=== PATIENT | female | born 1985 | race Caucasian/White ===

== ENCOUNTER → 2024-04-27 14:52 | Outpatient (REF) | payer BC, SELFPAY | LOC: HWRAD 14:52 | PROVIDERS: ATTENDING PHYSICIAN Obstetrics & Gynecology | DX: N92.1 Excessive and frequent menstruation with irregular cycle (principal); N85.2 Hypertrophy of uterus | CPT/HCPCS: 76830; 76856 ==

== ENCOUNTER 2024-07-09 06:30 | Inpatient (IN) | payer BC, SELFPAY ==
[2024-06-25 09:00] LABS: % Basophils 0.7 % (0-2); % Eosinophils 1.7 % (0-6); % Immature Granulocytes 0.3 % (0-0.5); % Lymphocytes 26.2 % (20.5-51.1); % Monocytes 5.9 % (1.7-9.3); % Neutrophils 65.2 % (42.2-75.2); Absolute Basophils 0.1 10^3/uL (0-0.2); Absolute Eosinophils 0.1 10^3/uL (0-0.7); Absolute Lymphocytes 1.8 10^3/uL (1.2-3.4); Absolute Monocytes 0.4 10^3/uL (0.1-0.6); Absolute Neutrophils 4.5 10^3/uL (1.4-6.5); Hematocrit 36.1 % (37.0-47.0); Hemoglobin 12.5 g/dL (12.0-16.0); Mean Corp Hgb Conc. 34.6 g/dL (33.0-37.0); Mean Corpuscular Hgb 28.2 pg (27.0-31.0); Mean Corpuscular Volume 81.3 fL (81.0-99.0); Mean Platelet Volume 10.1 fL (7.4-10.4); Nucleated Red Blood Cells % 0 %; Platelet Count 303 10^3/uL (130-400); Red Blood Cell Count 4.44 10^6/uL (4.20-5.40); Red Cell Dist. Width 12.9 % (11.5-14.5)
[2024-06-25 09:15] VITALS: BMI 36.5
[2024-06-25 09:28] LABS: Blood Urea Nitrogen 11 mg/dl (7-17); Calcium 9.5 mg/dl (8.4-10.2); Carbon Dioxide 23 mmol/L (22-30); Chloride 105 mmol/L (98-107); Estimated Creatinine Clearance 95 ml/min; Glucose 92 mg/dl (70-99); Potassium 4.1 mmol/L (3.5-5.1); Sodium 143 mmol/L (135-145); eGFR > 60.00
[2024-06-25 09:44] LABS: Beta HCG Quantitative < 2.39 mIU/ml
[2024-06-29 08:36] LABS: Sex Hormone Binding Globulin 350 nmol/L (25-122); Total Testosterone,Female/Chil 37 ng/dL (9-55)
[2024-07-09] VITALS (18 sets, daily range): BP systolic 133–159; BP diastolic 81–111; BMI 36.5
[2024-07-09] MEDS: TYLENOL 1000 MG PO (06:32)
[2024-07-09] MEDS: NEURONTIN 600 MG PO (06:32)
[2024-07-09] MEDS: ENTEREG 12 MG PO (06:32)
--- NOTE | 2024-07-09 07:21 | W.SUR.PREOP ---
Pre-Operative Surgical Note
-
I have examined this patient prior to the performance of the scheduled procedure.
The patient's condition is unchanged from the time of the current History and
Physical and the patient is able to undergo the scheduled procedure.
I met with pt this am and had another lengthy discussion with her and regarding her understanding of the procedure and expectations. She is very concerned about needing a colostomy. I again reviewed the options of diagnostic laparoscopy
with excision of endometriosis cysts and/or drainage of cysts and trying to clean up much as possible. I did discuss with her that with this approach there was a high risk for recurrence of endometriosis and potential for developing more scar
tissue and also needing surgery in the future. I wanted to make sure we both understand the goals of surgery. I reviewed that the alternative is to proceed with robotic assisted total laparoscopic hysterectomy bilateral salpingectomy with ovarian
cystectomy versus bilateral oophorectomy. The effects of removing both ovaries would place her into surgical menopause. This would be definitive treatment for endometriosis if it is severe disease. Given large endometrioma, I explained there is
risk for severe disease and future recurrence as well as future surgery.
She has been considering these options and today states she would prefer not to have multiple future surgeries. She expressed that she would rather have a total hysterectomy, bilateral salpingectomy and even bilateral oopherectomy if I find severe
disease. She understands there is a risk for bowel involvement and possible surgery but would rather this happen today then in the future if I felt it was indicated. She is leaving it to my discretion. She is aware that performing a hysterectomy may
increase risk for needing bowel surgery if there are dense adhesions but this is what we have been prepared for. Patient understands and expresses this. Consent has been updated to possible robotic assisted total laparoscopic hysterectomy
bilateral salpingectomy with removal of ovarian cyst versus removal of one or both ovaries. Consent form updated. Dr. Rankin present for a large portion of this conversation. He had arrived to see patient when we were in discussion. She is hoping
to avoid a colostomy but is aware this is a risk of surgery.
--- NOTE | 2024-07-09 11:15 | W.IMMPOSTOP ---
Surgical Immed Post Op Note
-
Primary Surgeon: Cecy Cabral DO
Co-surgeon: Dr. Brijesh Almodovar, [facility]
Jacquard Card Lacer: BARRIE Guy
Pre-op Diagnosis: Complex adnexal masses, menorrhagia, severe dysmenorrhea, pelvic pain, suspected endometriosis
Post-op Diagnosis: Complex adnexal masses consistent with endometriomas. Severe endometriosis and adhesions in pelvic, posterior and anterior cul de sac and involving bilateral fallopian tubes and sigmoid.
Procedure Performed: robotic assisted diagnostic laparoscopy, robotic assisted right ovarian cystectomy, extensive lysis adhesions, ureterolysis, robotic laparoscopic modified radical hysterectomy, bilateral salpingo-oopherectomy.
Cystoscopy and ureteral stent placement: Dr. Downey. Sigmoidoscopy: Dr. Rankin.
Anesthesia Type: general ET, Dr. Ahn
Specimen / Cultures: uterus, cervix, bilateral tubes and ovaries, pelvic peritoneum/adhesion
Estimated Blood Loss: 50ml
IV FLuids: 1600ml
Urine output: 200ml clear urine
Complications: none
Operative Findings: Complex adnexal masses consistent with endometriomas. Severe endometriosis with 9 cm right endometrioma. Left ovary with 4.5 cm endometriotic cyst. Dense adhesions envelop the ovaries, posterior cul de sac, uterus and part of
anterior peritoneum. Bilateral hydrosalpinx also enveloped in adhesions. Sigmoid colon evaluated via Sigmoidoscopy by Dr. Rankin toward end of case and no sigmoid injury or leakage was noted.
Ramey removed at completion of case.
Counts correct times 2.
Stable to recovery.
[2024-07-09] MEDS: DILAUDID 0.5 MG IV ×2 (11:28→11:44)
[2024-07-09] MEDS: DEMEROL 12.5 MG IV (11:59)
[2024-07-09] MEDS: DILAUDID 0.25 MG IV (12:23)
[2024-07-09] MEDS: ROXICODONE 5 MG PO (13:35)
--- NOTE | 2024-07-09 15:22 | W.PN.UPDATE ---
Update Note
Progress Note Update
Pt seen in SDS after surgery.
Reviewed findings with patient and .
Reviewed severity of adhesive endometriotic disease and decision to perform hysterectomy and BSO.
She expressed gratitude that she did not need bowel surgery and that we expect she will fell much better and have better quality of life once she is fully recovered. Questions were answered. I did explain Dr. Almodovar's role and reason I had asked him
to be present for portions of her surgery.
== END 2024-07-09 17:00 | disposition home or self-care (01) | DRG 743 ==
LOC: PACUI 06:30
PROVIDERS: Obstetrics & Gynecology Gynecologic Oncology; ADMITTING PHYSICIAN Surgery; ATTENDING PHYSICIAN Obstetrics & Gynecology; FAMILY PHYSICIAN Internal Medicine
PROC: 0UT74ZZ Resection of Bilateral Fallopian Tubes, Percutaneous Endoscopic Approach (ICD-10-PCS; 2024-07-09)
PROC: 0UT24ZZ Resection of Bilateral Ovaries, Percutaneous Endoscopic Approach (ICD-10-PCS; 2024-07-09)
PROC: 0UB04ZZ Excision of Right Ovary, Percutaneous Endoscopic Approach (ICD-10-PCS; 2024-07-09)
PROC: 0UBF4ZX Excision of Cul-de-sac, Percutaneous Endoscopic Approach, Diagnostic (ICD-10-PCS; 2024-07-09)
PROC: 0UT94ZZ Resection of Uterus, Percutaneous Endoscopic Approach (ICD-10-PCS; 2024-07-09)
PROC: 0DJD8ZZ Inspection of Lower Intestinal Tract, Via Natural or Artificial Opening Endoscopic (ICD-10-PCS; 2024-07-09)
PROC: 8E0W4CZ Robotic Assisted Procedure of Trunk Region, Percutaneous Endoscopic Approach (ICD-10-PCS; 2024-07-09)
DX: N80.123 Deep endometriosis of bilateral ovaries (principal); N80.319 Endometriosis of the anterior cul-de-sac, unspecified depth; N83.291 Other ovarian cyst, right side; F41.9 Anxiety disorder, unspecified; N94.6 Dysmenorrhea, unspecified; N73.6 Female pelvic peritoneal adhesions (postinfective); Z79.3 Long term (current) use of hormonal contraceptives
CPT/HCPCS: 88304; 88305; 88307; 36415; 80048; 84270; 84402; 84403; 84702; 85025; 86850; 86900; 86901; A4300; J1335